=== PATIENT | male | born 1985 | race Caucasian/White ===

== ENCOUNTER → 2018-10-27 | Outpatient (CLI) | payer BC ==
[2018-10-27 12:56] LABS: ABSOLUTE EOSINOPHILS # (AUTO) 0.3 10^3/uL (0.0-0.6); ABSOLUTE LYMPHOCYTES (AUTO) 1.4 10^3/uL (0.5-4.7); ABSOLUTE MONOCYTES (AUTO) 0.4 10^3/uL (0.1-1.4); ABSOLUTE NEUT (AUTO) 3.8 10^3/uL (1.7-8.2); BASOPHILS % (AUTO) 0.2 % (0-2); EOSINOPHILS % (AUTO) 4.9 % (0-6); HEMATOCRIT 43.4 % (37.9-51.0); HEMOGLOBIN 14.9 g/dL (13.5-17.0); LYMPHOCYTES % (AUTO) 23.7 % (13-45); MEAN CORPUSCULAR HEMOGLOBIN 29.7 pg (27.0-33.4); MEAN CORPUSCULAR HGB CONC 34.3 g/dL (32.0-36.0); MEAN CORPUSCULAR VOLUME 87 fl (80-97); MONOCYTES % (AUTO) 6.9 % (3-13); PLATELET COUNT 289 10^3/uL (150-450); RED CELL DISTRIBUTION WIDTH 13.3 % (11.5-14.0); SEGMENTED NEUTROPHILS % (AUTO) 64.3 % (42-78); TOTAL CELLS COUNTED % (AUTO) 100 %; WHITE BLOOD COUNT 5.9 10^3/uL (4.0-10.5)
[2018-10-27 13:14] LABS: ALBUMIN 4.6 g/dL (3.5-5.0); ALKALINE PHOSPHATASE 71 U/L (38-126); ANION GAP 9 (5-19); ASPARTATE AMINO TRANSFERASE 36 U/L (17-59); BILIRUBIN,DIRECT 0.2 mg/dL (0.0-0.4); BILIRUBIN,TOTAL 0.3 mg/dL (0.2-1.3); BLOOD UREA NITROGEN 11 mg/dL (7-20); CALCIUM 9.7 mg/dL (8.4-10.2); CARBON DIOXIDE 28 mmol/L (22-30); CHLORIDE 100 mmol/L (98-107); GLUCOSE 163 mg/dL (75-110); POTASSIUM 4.4 mmol/L (3.6-5.0); TOTAL PROTEIN 7.4 g/dL (6.3-8.2)
== END ==
LOC: OD 12:19
PROVIDERS: ATTEND Nurse Practitioner Acute Care
DX: R11.2 Nausea with vomiting, unspecified (principal)
CPT/HCPCS: 36415; 80053; 83690; 85025

== ENCOUNTER 2019-05-02 10:13 | Emergency (ER) | payer BC ==
--- NOTE | 2019-05-02 10:30 | ER Document Report ---
ED Medical Screen (RME) - General Chief Complaint: Psych Problem Stated Complaint: PSYCH EVAL Time Seen by Provider: 05/02/19 10:22 Primary Care Provider: VALARIE MAYER NP [Primary Care Provider] - Follow up as needed Mode of Arrival: Ambulatory Information source: Patient Notes: Patient states that he woke up feeling off today and put a gun in his mouth. Patient states that he called his employer and told him about what it happened and that he was not in a come to work because he was going to go get evaluated. Patient states that he walked out of his house and law enforcement was there to escort him here. Patient states that he denies attempting suicide but he has thought about it this morning. Patient denies any HI. Patient does have a history of anxiety and depression and has been compliant with taking his Wellbutrin. I have greeted and performed a rapid initial assessment of this patient. A comprehensive ED assessment and evaluation of the patient, analysis of test results and completion of the medical decision making process will be conducted by additional ED providers. TRAVEL OUTSIDE OF THE [place] IN LAST 30 DAYS: No - Related Data Allergies/Adverse Reactions: No Known Allergies Allergy (Verified 05/02/19 10:19) Home Medications: Welbutrin. Adderol XR. Citirizine. Omeprazole. Daily vitamin Past Medical History - Social History Frequency of alcohol use: Social Drug Abuse: None Physical Exam - Vital signs Vitals: Temp Pulse Resp BP Pulse Ox 97.9 F 106 H 18 180/122 H 100 05/02/19 10:05/02/19 10:05/02/19 10:05/02/19 10:05/02/19 10:19 - Psychological Associated symptoms: Normal affect, Normal mood Course - Vital Signs Vital signs: Temp Pulse Resp BP Pulse Ox 97.9 F 106 H 18 180/122 H 100 05/02/19 10:05/02/19 10:05/02/19 10:05/02/19 10:05/02/19 10:19 Doctor's Discharge - Discharge Referrals: VALARIE MAYER NP [Primary Care Provider] - Follow up as needed
[2019-05-02 12:01] LABS: ABSOLUTE EOSINOPHILS # (AUTO) 0.1 10^3/uL (0.0-0.6); ABSOLUTE MONOCYTES (AUTO) 0.5 10^3/uL (0.1-1.4); BASOPHILS % (AUTO) 0.3 % (0-2); EOSINOPHILS % (AUTO) 1.3 % (0-6); HEMATOCRIT 45.6 % (37.9-51.0); HEMOGLOBIN 15.6 g/dL (13.5-17.0); LYMPHOCYTES % (AUTO) 14.8 % (13-45); MEAN CORPUSCULAR HEMOGLOBIN 29.8 pg (27.0-33.4); MEAN CORPUSCULAR HGB CONC 34.2 g/dL (32.0-36.0); MEAN CORPUSCULAR VOLUME 87 fl (80-97); MONOCYTES % (AUTO) 8.1 % (3-13); PLATELET COUNT 300 10^3/uL (150-450); RED BLOOD COUNT 5.23 10^6/uL (4.35-5.55); RED CELL DISTRIBUTION WIDTH 13.6 % (11.5-14.0); SEGMENTED NEUTROPHILS % (AUTO) 75.5 % (42-78); TOTAL CELLS COUNTED % (AUTO) 100 %; WHITE BLOOD COUNT 6.7 10^3/uL (4.0-10.5)
[2019-05-02 12:08] LABS: APPEARANCE,URINE CLEAR; BILIRUBIN,URINE NEGATIVE (NEGATIVE); COLOR,URINE YELLOW; GLUCOSE, URINE NEGATIVE (NEGATIVE); KETONES,URINE NEGATIVE (NEGATIVE); LEUKOCYTE ESTERASE,URINE NEGATIVE (NEGATIVE); NITRITE,URINE NEGATIVE (NEGATIVE); PROTEIN,URINE NEGATIVE (NEGATIVE); URINE SPECIFIC GRAVITY 1.016; UROBILINOGEN,URINE NEGATIVE mg/dL (<2.0)
[2019-05-02 12:18] LABS: ALBUMIN 4.8 g/dL (3.5-5.0); ALKALINE PHOSPHATASE 77 U/L (38-126); ANION GAP 11 (5-19); ASPARTATE AMINO TRANSFERASE 40 U/L (17-59); BILIRUBIN,DIRECT 0.2 mg/dL (0.0-0.4); BILIRUBIN,TOTAL 0.6 mg/dL (0.2-1.3); BLOOD UREA NITROGEN 10 mg/dL (7-20); CALCIUM 9.9 mg/dL (8.4-10.2); CARBON DIOXIDE 28 mmol/L (22-30); CHLORIDE 100 mmol/L (98-107); GLUCOSE 127 mg/dL (75-110); POTASSIUM 4.3 mmol/L (3.6-5.0); TOTAL PROTEIN 8.2 g/dL (6.3-8.2)
[2019-05-02 12:23] LABS: ACETAMINOPHEN < 10 ug/mL (10-30); ALCOHOL < 10 mg/dL (NONE DETECTED); SALICYLATE < 1.0 mg/dL (2.0-20.0)
[2019-05-02 12:27] LABS: URINE BARBITURATES SCREEN NEGATIVE; URINE BENZODIAZEPINES SCREEN NEGATIVE; URINE COCAINE SCREEN NEGATIVE; URINE MARIJUANA (THC) SCREEN NEGATIVE; URINE METHADONE SCREEN NEGATIVE; URINE PHENCYCLIDINE SCREEN NEGATIVE
[2019-05-02 12:28] LABS: URINE AMPHETAMINES SCREEN UNCONFIRMED POSITIVE
--- NOTE | 2019-05-02 13:31 | EKG REPORT ---
SEVERITY:- ABNORMAL ECG - SINUS RHYTHM NONSPECIFIC T ABNORMALITIES, INFERIOR LEADS : Confirmed by: Perry Allen MD 02-May-2019 13:30:13
--- NOTE | 2019-05-02 14:02 | ER Document Report ---
ED Psych Disorder / Suicide - General Chief Complaint: Psych Problem Stated Complaint: PSYCH EVAL Time Seen by Provider: 05/02/19 10:22 Primary Care Provider: VALARIE MAYER NP [Primary Care Provider] - Follow up as needed Mode of Arrival: Ambulatory TRAVEL OUTSIDE OF THE [place] IN LAST 30 DAYS: No - HPI Notes: 34-year-old male presents emergency room for feelings of SI. Patient states he got this morning and felt like he wanted to kill himself, he put a gun to his mouth but prior to pulling the trigger he realized that he wanted to live. Patient states that since he had a psychiatrist however she stopped practicing, he has been unable to get mental health provider since that time, he really did not have anywhere to go he states that he called on [employer] and they escorted him here because his employer told him that he needed to get evaluated and not coming to work today. Denies any homicidal ideation. Patient states he does have a history of anxiety and depression, he has been taking his Wellbutrin for depression and Adderall for his ADHD. He did take his Adderall this morning. Denies fevers, chills, chest pain,palpitations, shortness of breath, dyspnea, nausea, vomiting, diarrhea, abdominal pain, hematuria,blurred vision, double vision, loss of vision, speech changes, LH, dizziness, syncope, headaches, wheezing, ST, URI, neck pain, weakness, bowel or bladder dysfunction, saddle anesthesia, numbness or tingling in bilateral upper or lower extremities equally, muscle paralysis, weakness in bilateral upper or lower extremities equally or rash. - Related Data Allergies/Adverse Reactions: No Known Allergies Allergy (Verified 05/02/19 10:19) Home Medications: Welbutrin. Adderol XR. Citirizine. Omeprazole. Daily vitamin Past Medical History - General Information source: Patient - Social History Smoking Status: Never Smoker Frequency of alcohol use: Social Drug Abuse: None Family History: Reviewed & Not Pertinent Patient has suicidal ideation: Yes Patient has homicidal ideation: No - Past Medical History Cardiac Medical History: Reports: Hx Hypercholesterolemia Denies: Hx Hypertension - states borderline Psychiatric Medical History: Reports: Hx Depression Review of Systems - Review of Systems Constitutional: No symptoms reported EENT: No symptoms reported Cardiovascular: No symptoms reported Respiratory: No symptoms reported Gastrointestinal: No symptoms reported Genitourinary: No symptoms reported Male Genitourinary: No symptoms reported Musculoskeletal: No symptoms reported Skin: No symptoms reported Hematologic/Lymphatic: No symptoms reported Neurological/Psychological: See HPI Physical Exam - Vital signs Vitals: Temp Pulse Resp BP Pulse Ox 97.9 F 106 H 18 180/122 H 100 05/02/19 10:19 05/02/19 10:19 05/02/19 10:19 05/02/19 10:19 05/02/19 10:19 - Notes Notes: PHYSICAL EXAMINATION:reviewed vital signs by RN GENERAL: Well-appearing, well-nourished and in no acute distress. HEAD: Atraumatic, normocephalic. EYES: Pupils equal round and reactive to light, extraocular movements intact, sclera anicteric, conjunctiva are normal. ENT: Nares patent, oropharynx clear without exudates. Moist mucous membranes. NECK: Normal range of motion, supple without lymphadenopathy LUNGS: Breath sounds clear to auscultation bilaterally and equal. No wheezes rales or rhonchi. HEART: Regular rate and rhythm without murmurs ABDOMEN: Soft, nontender, nondistended abdomen. No guarding, no rebound. No masses appreciated. Musculoskeletal: Normal range of motion, no pitting or edema. No cyanosis. NEUROLOGICAL: Cranial nerves grossly intact. Normal speech, normal gait. Normal sensory, motor exams PSYCH: Flat affect. SKIN: Warm, Dry, normal turgor, no rashes or lesions noted. Course - Re-evaluation Re-evalutation: 05/02/19 15:07 Afebrile vital stable no distress. Patient's blood pressure was slightly elevated with the automatic, manual blood pressure was taken which was a bit lower. Patient did take his Adderall this morning. CBC negative for leukocytosis or anemia, CMP negative for hepatic or renal dysfunction, no electrolyte disturbances. EKG negative for any acute STEMI, no ST segment changes. Chest x-ray unremarkable. Patient drug screen was negative except for vitamins which she does have a prescription for Adderall. Awaiting for mental health to come to bedside for evaluation. 1930-patient patient's vitals are stable, he is complaining of a slight headache, will give him ibuprofen. No nausea vomiting or diarrhea. Mental health has been at bedside to evaluate. Due to patient having a gun in his mouth this morning, Dr. Boom Pineda, supervising physician, does not feel it is appropriate for patient to be discharged until 24 hours after IVC, he will be reassessed in the morning. Patient denies any endorse any SI or HI - Vital Signs Vital signs: Temp Pulse Resp BP Pulse Ox 98.7 F 112 H 20 162/102 H 98 05/02/19 18:55 05/02/19 18:55 05/02/19 18:55 05/02/19 18:55 05/02/19 18:55 - Laboratory Result Diagrams: 05/02/19 11:30 05/02/19 11:30 Laboratory results interpreted by me: 05/02/19 11:30 Glucose 127 H Salicylates < 1.0 L Acetaminophen < 10 L Discharge - Discharge Clinical Impression: Suicidal ideation Condition: Stable Disposition: PSYCH HOSP/UNIT Referrals: VALARIE MAYER NP [Primary Care Provider] - Follow up as needed
[2019-05-02] MEDS ORDERED: IBUPROFEN 600 MG TABLET PO ONE (18:52)
--- NOTE | 2019-05-03 06:05 | ER Document Report ---
Entered by GEORGIA REYES SCRIBE 05/02/19 Acting as scribe for:INÉS BALLARD MD ED General - General Chief Complaint: Psych Problem Stated Complaint: PSYCH EVAL Time Seen by Provider: 05/02/19 10:22 Primary Care Provider: VALARIE MAYER NP [Primary Care Provider] - Follow up as needed Mode of Arrival: Ambulatory Information source: Patient Notes: 34 year old male presents to the emergency department after putting a gun to his mouth earlier this morning. Patient reports that his "finger was not on the trigger" and the gun was not loaded. Patient states that he was seeing a therapist but stopped seeing her a year ago due to her leaving the practice. He states that he has not gone to see another therapist because he "thought he didn't need it anymore". Patient also states that that there was not "a moment I believed I would actually do it". He said that "the little things piled up on one another and he reached his limit". He states that this was the way he was "talking to himself to help with his insecurities". Patient denies hearing voices, hallucinations, homicidal idealization and reports mild headaches. TRAVEL OUTSIDE OF THE [place] IN LAST 30 DAYS: No - Related Data Allergies/Adverse Reactions: No Known Allergies Allergy (Verified 05/02/19 10:19) Home Medications: Welbutrin. Adderol XR. Citirizine. Omeprazole. Daily vitamin Past Medical History - General Information source: Patient - Social History Smoking Status: Former Smoker - quit 5 years ago Cigarette use (# per day): No Chew tobacco use (# tins/day): No Frequency of alcohol use: Social Drug Abuse: None Occupation: Collections Rep Lives with: Alone Family History: Reviewed & Not Pertinent Patient has suicidal ideation: Yes Patient has homicidal ideation: No - Past Medical History Cardiac Medical History: Reports: Hx Hypercholesterolemia GI Medical History: Reports: Hx Irritable Bowel Psychiatric Medical History: Reports: Hx Attention Deficit Hyperactivity Disorder, Hx Depression, Other - Autism Spectrum Disorder Surgical Hx: Negative Review of Systems - Review of Systems Constitutional: No symptoms reported EENT: No symptoms reported Cardiovascular: No symptoms reported Respiratory: denies: Cough Gastrointestinal: No symptoms reported Genitourinary: No symptoms reported Male Genitourinary: No symptoms reported Musculoskeletal: No symptoms reported Skin: No symptoms reported Hematologic/Lymphatic: No symptoms reported Neurological/Psychological: See HPI, Headaches, Suicidal ideation. denies: Hallucinations, Homicidal ideation -: Yes All other systems reviewed and negative Physical Exam - Vital signs Vitals: Temp Pulse Resp BP Pulse Ox 97.9 F 106 H 18 180/122 H 100 05/02/19 10:19 05/02/19 10:19 05/02/19 10:19 05/02/19 10:19 05/02/19 10:19 - Notes Notes: Physical Exam: General: Alert, appears well. Candid and honest about this mornings events. HEENT: Normocephalic. Atraumatic. PERRL. Extraocular movements intact. Oropharynx clear. Neck: Supple. Non-tender. Respiratory: No respiratory distress. Clear and equal breath sounds bilaterally. Cardiovascular: Regular rate and rhythm. Abdominal: Normal Inspection. Non-tender. No distension. Normal Bowel Sounds. Back: No gross abnormalities. Extremities: Moves all four extremities. Upper extremities: Normal inspection. Normal ROM. Lower extremities: Normal inspection. No edema. Normal ROM. Neurological: Normal cognition. AAOx4. Normal speech. Psychological: Normal affect. Normal Mood. Skin: Warm. Dry. Normal color. Course - Vital Signs Vital signs: Temp Pulse Resp BP Pulse Ox 98.7 F 112 H 20 162/102 H 98 05/02/19 18:55 05/02/19 18:55 05/02/19 18:55 05/02/19 18:55 05/02/19 18:55 - Laboratory Result Diagrams: 05/02/19 11:30 05/02/19 11:30 Laboratory results interpreted by me: 05/02/19 11:30 Glucose 127 H Salicylates < 1.0 L Acetaminophen < 10 L - EKG Interpretation by Me Additional EKG results interpreted by me: 05/03/19 06:03 Twelve-lead EKG done on May 02 disclose normal sinus rhythm nonspecific T wave changes in the inferior leads no acute ST-T wave changes noted. Discharge - Discharge Clinical Impression: Suicidal ideation Condition: Serious Disposition: PSYCH HOSP/UNIT Referrals: VALARIE MAYER, DENIS [Primary Care Provider] - Follow up as needed I personally performed the services described in the documentation, reviewed and edited the documentation which was dictated to the scribe in my presence, and it accurately records my words and actions.
--- NOTE | 2019-05-03 06:45 | PSYCHOLOGICAL NOTE ---
Psych Note - Psych Note Date seen by psych provider: 05/02/19 Time seen by psych provider: 12:00 Psych Note: Patient is a 34-year-old male who presents to ED via [employer] on IVC petition filed by mobile crisis for suicidal ideation. Patient states "I had a brief moment of suicidal thoughts thoughts and never a moment in which I was trying." Patient described putting the gun in his mouth as a "empty threat and I was blessing." Patient states that he never put his finger on the trigger. Patient described feelings of low self-worth failure and disappointment throughout most of his lifetime. Patient states "meds and therapy have always worked." Patient states he realizes "how stupid" his behavior was as he reflects. Patient reports he is glad he did not complete suicide. Patient states he called his boss to let her know he would not be at work as he needed to seek mental health services. Patient states that Kerrie PARHAM showed up as he was attempting to get in his car to go to [facility], he receives medication management with Dr. Hill. Patient reports mental health diagnoses of depression, anxiety, ADHD, and "extremely high functioning" autism spectrum disorder. Patient reports home medications of Wellbutrin XL 150 mg, daily and Adderall 20 mg daily. Patient reports benefit of medications. Patient states he has been without a mental health therapist for approximately a year. Patient has a degree in IT, but was forced to remain in the area after [place]. Patient states his lease is up in July, and he has been revising his resume in order to apply for IT jobs beginning in 05/22/2019- close to when his lease is up. 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 Clinician spoke with responding [employer] officer who confirmed patient's narrative. When [employer] officer arrived on scene, patient was attempting to get in his car and go to [facility]. [employer] officer followed patient to [facility], at which point mobile crisis arrived. [employer] officer described patient as compliant and stated patient was willing to surrender his weapon for safekeeping. [employer] officer stated patient expressed frustration that "this whole thing was blown out of proportion." Patient is alert and oriented to person, place, time and circumstance. Mood is normal with congruent affect. Patient denies current suicidal and homicidal ideations. Delusions are absent and behavior is congruent with an intact reality based presentation (i.e., organized and linear through processes). There is no observed behavior that suggests patient is responding to internal stimuli. Patient is able to engage in organized, rational thought processes. Patient is able to express needs and wants in a logical manner. Patient denies current auditory and visual hallucinations. Eye contact is appropriate. Conversational speech is within normal rate, tone, and prosody. Intellectual ability appears to be within average range. Attention and concentration are good. Insight, judgment and impulse control are currently good. Impression/Plan: Attending physician was not comfortable with discharge, therefore patient will remain on 24 hour petition for evaluation. Patient denies current suicidal and homicidal ideations. There is no observed behavior that suggests patient is responding to internal stimuli. Patient engaged in organized, rational, linear thought processes and was able to express needs and wants in a logical manner. Patient verbalized insight that he has been bottling up his insecurities and needed the benefit of mental health services. Patient was able to problem solve through this situation by reaching out to his boss to inform her he would not be at work today, and then going directly to [facility]. Patient has already contacted his insurance company to facilitate telementalheath services. Patient engaged is future oriented thinking. Patient will be reevaluated. Dr. Tanner was consulted on the care and management of this patient.
--- NOTE | 2019-05-03 12:26 | ER Document Report ---
ED General - General Chief Complaint: Psych Problem Stated Complaint: PSYCH EVAL Time Seen by Provider: 05/02/19 10:22 Primary Care Provider: VALARIE MAYER NP [Primary Care Provider] - Follow up as needed Mode of Arrival: Ambulatory TRAVEL OUTSIDE OF THE [place] IN LAST 30 DAYS: No - Related Data Allergies/Adverse Reactions: No Known Allergies Allergy (Verified 05/02/19 10:19) Home Medications: Welbutrin. Adderol XR. Citirizine. Omeprazole. Daily vitamin Past Medical History - General Information source: Patient - Social History Smoking Status: Former Smoker - quit 5 years ago Cigarette use (# per day): No Chew tobacco use (# tins/day): No Frequency of alcohol use: Social Drug Abuse: None Occupation: Senior Front End Web Developer Lives with: Alone Family History: Reviewed & Not Pertinent Patient has suicidal ideation: Yes Patient has homicidal ideation: No - Past Medical History Cardiac Medical History: Reports: Hx Hypercholesterolemia Denies: Hx Hypertension - states borderline GI Medical History: Reports: Hx Irritable Bowel Psychiatric Medical History: Reports: Hx Attention Deficit Hyperactivity Disorder, Hx Depression, Other - Autism Spectrum Disorder Surgical Hx: Negative Physical Exam - Vital signs Vitals: Temp Pulse Resp BP Pulse Ox 97.9 F 106 H 18 180/122 H 100 05/02/19 10:19 05/02/19 10:19 05/02/19 10:19 05/02/19 10:19 05/02/19 10:19 Course - Vital Signs Vital signs: Temp Pulse Resp BP Pulse Ox 97.9 F 89 19 157/81 H 99 05/03/19 06:24 05/03/19 06:24 05/03/19 06:24 05/03/19 06:24 05/03/19 06:24 - Laboratory Result Diagrams: 05/02/19 11:30 05/02/19 11:30 Laboratory results interpreted by me: 05/02/19 11:30 Glucose 127 H Salicylates < 1.0 L Acetaminophen < 10 L Discharge - Discharge Clinical Impression: Suicidal ideation Condition: Serious Disposition: PSYCH HOSP/UNIT Referrals: VALARIE AMYER NP [Primary Care Provider] - Follow up as needed
--- NOTE | 2019-05-03 12:28 | ER Document Report ---
Doctor's Note Notes: 05/03/19 12:27 S: 34-year-old male to the emergency department since yesterday morning with complaints of depression and fleeting SI. Apparently he has been without his therapist for some time now and is only been on Adderall and Wellbutrin for control of his anxiety and ADD D. Apparently he has been feeling fairly low and yesterday he put an unloaded gun in his mouth. He states that he realized when he had it in his mouth that it was not a good idea and that he wanted to live. He states he does not have any plan for SI or HI. Apparently he was on his way to his primary care physician after he did this when he was met by [place] police. They brought him here and he has been on IVC paper since. [facility] saw him yesterday and recommended discharge but ER attending wanted patient to have a 24-hour IVC to monitor further. Patient states that he is feeling much better today and denies any SI. He states that he thinks that he really needs a therapist for cognitive behavioral therapy. He denies any HI or hallucinations. O: Constitutional: Alert, oriented, in no acute distress. Cardiac: Regular rate and rhythm, no murmurs, gallops, or rubs Pulmonary: There to auscultation bilaterally, no wheezes, rhonchi, rales Abdomen: Soft, nontender Skin: Warm, dry, normal turgor Psych: Normal mood, normal affect. Good insight. Denies SI or HI. Denies any hallucinations. He states that he realizes that he does not want to . A/P: Patient in the emergency department since yesterday morning for concerning behavior and SI. He states he is feeling much better now. Awaiting behavioral health evaluation today for further management. Apparently yesterday patient was recommended for discharge but ER attending felt patient needed to be IVC for 24 hours. 05/03/19 [facility] saw and evaluated patient. He is doing much better today. He has not had any SI or HI. He has been given good follow-up for outpatient services to include a therapist. IVC has been rescinded. We will discharge the patient home.
[2019-05-03 14:07] VITALS: BP 158/110
--- NOTE | 2019-05-03 19:09 | PSYCHOLOGICAL NOTE ---
Psych Note - Psych Note Date seen by psych provider: 05/03/19 Time seen by psych provider: 10:50 Psych Note: Check in conducted with patient. Patient states he is ready for discharge. Patient continues to deny SI/HI. Discussed identifying a person patient would feel comfortable taking possession of his gun. Patient states he has no problem with the gun being removed from the home. Clinician verified phone call with his coworker Bishnu who has agreed to take possession of the gun. Patient expressed concern with paying the hospital bill with "my high insurance deductible." Clinician encouraged patient to reach out to the financial business office to seek assistance. Impression/Plan: Patient is recommended for rescind of IVC petition and is cleared from acute psychiatric services. Patient denies current suicidal and homicidal ideations. There is no observed behavior that suggests patient is responding to internal stimuli. Patient engaged in organized, rational, linear thought processes and was able to express needs and wants in a logical manner. Patient verbalized insight that he has been bottling up his insecurities and needed the benefit of mental health services. Patient was able to problem solve through this situation by reaching out to his boss to inform her he would not be at work today, and then going directly to [facility] to speak with Dr. Hill. 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 Bishnu, his coworker, as the person he would like to take possession of the gun. Dr. Tanner was consulted on the care and management of this patient; attending physician was in agreement with the recommendations and disposition.
== END 2019-05-03 15:23 | disposition home or self-care (01) ==
LOC: ER 10:13
DX: R45.851 Suicidal ideations (principal); R51 Headache; E78.00 Pure hypercholesterolemia, unspecified
CPT/HCPCS: 36415; 80053; 80307; 81001; 85025; 93005; 93010; 99285

== ENCOUNTER → 2020-03-22 | Outpatient (CLI) | payer BC ==
--- NOTE | 2020-03-22 16:05 | RADIOLOGY REPORT (SQ) ---
EXAM DESCRIPTION: RIBS RIGHT W/PA CHEST; RIBS LEFT W/PA CHEST IMAGES COMPLETED DATE/TIME: 03/22/2020 3:49 pm REASON FOR STUDY: (R07.81)PLEURODYNIA R07.81 PLEURODYNIA COMPARISON: None. TECHNIQUE: Frontal view of the chest and additional views of the right and left ribs acquired. NUMBER OF VIEWS: 9 views LIMITATIONS: None. FINDINGS: LEFT RIBS: FRONTAL CXR: No pneumothorax. No pleural effusion. No atelectasis or infiltrates. RIBS: No displaced rib fractures. No lytic or blastic bony lesions. OTHER: No other significant finding. RIGHT RIBS: FRONTAL CXR: No pneumothorax. No pleural effusion. No atelectasis or infiltrates. RIBS: No displaced rib fractures. No lytic or blastic bony lesions. OTHER: No other significant finding. IMPRESSION: NO PNEUMOTHORAX. NO DISPLACED RIB FRACTURES. COMMENT: SITE OF TRAUMA/COMPLAINT MARKED/STAMP COMPLETED: No TECHNICAL DOCUMENTATION: JOB ID: [id number] 2010 [employer]- All Rights Reserved Reading location - IP/workstation name: [email or web address]
--- NOTE | 2020-03-22 16:05 | RADIOLOGY REPORT (SQ) ---
EXAM DESCRIPTION: RIBS RIGHT W/PA CHEST; RIBS LEFT W/PA CHEST IMAGES COMPLETED DATE/TIME: 03/22/2020 3:49 pm REASON FOR STUDY: (R07.81)PLEURODYNIA R07.81 PLEURODYNIA COMPARISON: None. TECHNIQUE: Frontal view of the chest and additional views of the right and left ribs acquired. NUMBER OF VIEWS: 9 views LIMITATIONS: None. FINDINGS: LEFT RIBS: FRONTAL CXR: No pneumothorax. No pleural effusion. No atelectasis or infiltrates. RIBS: No displaced rib fractures. No lytic or blastic bony lesions. OTHER: No other significant finding. RIGHT RIBS: FRONTAL CXR: No pneumothorax. No pleural effusion. No atelectasis or infiltrates. RIBS: No displaced rib fractures. No lytic or blastic bony lesions. OTHER: No other significant finding. IMPRESSION: NO PNEUMOTHORAX. NO DISPLACED RIB FRACTURES. COMMENT: SITE OF TRAUMA/COMPLAINT MARKED/STAMP COMPLETED: No TECHNICAL DOCUMENTATION: JOB ID: [id number] 2010 [employer]- All Rights Reserved Reading location - IP/workstation name: [email or web address]
== END ==
LOC: RAD 14:42
PROVIDERS: ATTEND Nurse Practitioner Acute Care
DX: R07.81 Pleurodynia (principal)